=== PATIENT | female | born 1950 | race African-American/Black ===

== ENCOUNTER → 2017-01-05 | Outpatient (CLI) | payer BC ==
[~2017-01-05] MED LIST: BAYER BACK & BODY PO; CHOLESTOFF PO; DYAZIDE 371 CAP 37.5 PO; PRAVACHOL PO; PRAVASTATIN SOD20 MG PO; SYNTHROID PO; VITAMIN D1000 UNI1 PO; [UNRECOGNIZED DRUG - REMARK] TOP
--- NOTE | ~2017-01-05 | MY11 ---
[facility] A Service of [facility] RADIOLOGY TEXT RESULTS PATIENT: SAM JERONIMO LOCATION: [facility] : 54 UNIT #: [id number] AGE: [address]: KIA MCCABE SEX: F ORDER DR: [id number] [facility] [address] [place], [place] [address] [id number] O MR#: [id number] Acc #: [id number] NAME: SAM JERONIMO : 1950 SEX: F STUDY DATE/TIME: 01/05/2017 8:24 UNIT: [facility] ROOM: STUDY DESCRIPTION: MY Mammogram Screening Dig Molina Attending Physician: Kia Mccabe M.D. Referring Physician: Kia Mccabe M.D. Ordering Physician: Kia Mccabe M.D. Primary Care Physician: Kia Mccbae M.D. MEDICAL IMAGING REPORT This report is preliminary unless electronic signature is present EXAM Digital screening mammogram, 01/05/2017, [facility]. HISTORY 66-year-old woman strong family history, mother, sister, brother. Previous bilateral breast reduction mammoplasties. Annual screen. COMPARISON Mammograms date to 07/12/2009 with most recent 01/01/2016. TECHNIQUE Digital imaging of each breast was completed utilizing screening protocol. Review includes FDA-approved CAD device. FINDINGS Breast parenchyma is fatty replaced. Lipoid cyst is stable right subareolar location. There is no interval occurring breast mass. There are no suspicious microcalcifications and no architectural deformity. IMPRESSION Negative mammogram. Annual screening recommended. Patients over the age of 40 are entered into a reminder system with target due date for the next mammogram. A result letter will also be sent to the patient. BIRADS: 1 Negative Dictated by... Valentin Boston M.D. [facility] A Service of [facility] & [facility] RADIOLOGY TEXT RESULTS PATIENT: SAM JERONIMO LOCATION: [facility] : 54 UNIT #: [id number] AGE: [address]: KIA MCCABE SEX: F ORDER DR: THIS IS AN ELECTRONICALLY VERIFIED REPORT Valentin Boston M.D. at 01/05/2017 11:11 AM Margy TD: 01/05/2017 10:28 JOB #: [id number] MEDICAL IMAGING REPORT Page 1 of 1 COPY
== END | disposition home or self-care (01) ==
LOC: CWCC 07:45
DX: Z12.31 Encounter for screening mammogram for malignant neoplasm of breast (principal); Z80.3 Family history of malignant neoplasm of breast
CPT/HCPCS: G0202